=== PATIENT | female | born 1995 | race Caucasian/White ===

== ENCOUNTER 2016-12-29 11:44 | Emergency (ER) | payer BC, OTHER ==
[2016-12-29 11:50] VITALS: BMI 32.0
[2016-12-29] MEDS ORDERED: KETOROLAC TROMETHAMINE 30 MG/1 ML VIAL IVPUSH ONE (13:08)
[2016-12-29] MEDS ORDERED: FAMOTIDINE 20 MG/50 ML IVPB 50 ML IVPB ONE ×2 (13:08→13:14)
[2016-12-29] MEDS ORDERED: SODIUM CHLORIDE 1,000 ML IV STA (13:08)
[2016-12-29] MEDS ORDERED: ONDANSETRON 4 MG/2 ML VIAL IVPUSH ONE (13:08)
[2016-12-29] MEDS ORDERED: ONDANSETRON 4 MG/2 ML VIAL ONE (13:14)
[2016-12-29] MEDS ORDERED: KETOROLAC TROMETHAMINE 30 MG/1 ML VIAL ONE (13:14)
[2016-12-29 13:15] LABS: URINE APPEARANCE SLCLOUDY; URINE BILIRUBIN NEGATIVE (NEGATIVE); URINE BLOOD NEGATIVE (NEGATIVE); URINE COLOR YELLOW; URINE GLUCOSE (UA) NEGATIVE (NEGATIVE); URINE KETONE NEGATIVE (NEGATIVE); URINE NITRITE NEGATIVE (NEGATIVE); URINE PROTEIN NEGATIVE (NEGATIVE); URINE UROBILINOGEN NEGATIVE mg/dL (0.2-1.0)
[2016-12-29 13:29] LABS: BASOPHIL 0.9 % (0-2.0); EOSINOPHIL 2.2 % (0-4.5); MCH 28.7 pg (25.7-33.7); MCHC 33.4 g/dl (32.0-36.0); MEAN CELL VOLUME 85.8 fl (80-96); MEAN PLT VOLUME 7.9 fl (7.5-11.1); NEUTROPHILS 71.8 % (42.8-82.8); PLATELET COUNT 410 K/MM3 (134-434); RDW 12.6 % (11.6-15.6); WHITE BLOOD COUNT 11.2 K/mm3 (4.0-10.0)
[2016-12-29 13:56] LABS: ALBUMIN 4.1 g/dl (3.4-5.0); ANION GAP 9 (8-16); BILIRUBIN,TOTAL 0.6 mg/dL (0.2-1.0); CALCIUM 9.3 mg/dL (8.5-10.1); CO2 27 mmol/L (21-32); CREATININE 0.7 mg/dL (0.55-1.02); GLUCOSE,RANDOM 90 mg/dL (74-106); SGOT/AST 59 U/L (15-37); SGPT/ALT 137 U/L (12-78); TOT PROT 7.8 g/dl (6.4-8.2)
[2016-12-29 13:57] LABS: ALK PHOS 99 U/L (45-117)
--- NOTE | 2016-12-29 14:26 | PDOC ---
History of Present Illness - General Chief Complaint: Pain, Acute Stated Complaint: ABD PAIN, NAUSEA Time Seen by Provider: 12/29/16 12:06 History Source: Patient Exam Limitations: No Limitations - History of Present Illness Travel History: No Initial Comments: 12/29/16 14:02 21-year-old female presents to the ED with complaints of lower abdominal pain intimately for the past year associated with nausea every morning with a burning sensation to epigastric area evening into her upper chest and back of throat. Patient also states for the past year has had loose stool approximately 2-3 times a day and states in her teenage years had similar episodes but never had a colonoscopy or GI workup since she failed to follow-up. Patient denies fever, chills, dysuria, vaginal discharge, irregular menses, abdominal distention, chest pain or shortness of breath. Patient denies drug use but states her diet is poor eating fast food and smoking Timing/Duration: reports: intermittent Quality: reports: mild, burning, cramping Abdominal Pain Onset Location: reports: epigastric Pain Radiation: reports: chest Aggravating Factors: improves with: Eating Alleviating Factors: improves with: None Past History - Travel Traveled outside of the country in the last 30 days: No Close contact w/someone who was outside of country & ill: No - Past Medical History Allergies/Adverse Reactions: Allergies Allergy/AdvReac Type Severity Reaction Status Date / Time No Known Allergies Allergy Verified 02/07/16 19:53 Home Medications: Ambulatory Orders NK [No Known Home Medication] 12/29/16 Other medical history: DENIES - Immunization History Immunization Up to Date: Yes - Suicide/Smoking/Psychosocial Hx Smoking History: Never smoked Have you smoked in the past 12 months: No Information on smoking cessation initiated: No Hx Alcohol Use: No Drug/Substance Use Hx: No Substance Use Type: None Patient Lives Alone: No Lives with/in: spouse/SO Abd/GI Specific PMHX - Complaint Specific PMHX Colitis: No Diverticulitis: No Gall Bladder Disease: No GERD: No Irritable Bowel Synd (IBS): No Review of Systems - Review of Systems Able to Perform ROS?: No Is the patient limited Estonian proficient: No Constitutional: No: Symptoms Reported HEENTM: No: Symptoms Reported Respiratory: No: Symptoms reported Cardiac (ROS): No: Symptoms Reported ABD/GI: Yes: Diarrhea, Nausea, Vomiting, Abdominal cramping. No: Blood Streaked Bowels, Constipated : No: Symptoms Reported Musculoskeletal: No: Symptoms Reported Integumentary: No: Symptoms Reported Neurological: No: Symptoms reported Endocrine: No: Symptoms Reported Hematologic/Lymphatic: No: Symptoms Reported *Physical Exam - Vital Signs Last Vital Signs Temp Pulse Resp BP Pulse Ox 98.4 F 100 H 16 132/79 100 12/29/16 11:47 12/29/16 11:47 12/29/16 11:47 12/29/16 11:47 12/29/16 11:47 - Physical Exam General Appearance: Yes: Nourished, Appropriately Dressed. No: Apparent Distress HEENT: negative: Pale Conjunctivae Cardiovascular: positive: Regular Rhythm, Regular Rate. negative: Murmur Gastrointestinal/Abdominal: positive: Normal Bowel Sounds, Soft, Tenderness ( epigastric and left suprapubic). negative: Distended, Guarding, Rebound Musculoskeletal: negative: CVA Tenderness Extremity: positive: Normal Capillary Refill. negative: Pedal Edema Integumentary: positive: Normal Color, Warm, Moist Neurologic: positive: Motor Strength 5/5 ( ambulatory) ED Treatment Course - LABORATORY CBC & Chemistry Diagram: 12/29/16 13:00 12/29/16 13:00 - ADDITIONAL ORDERS Additional order review: Laboratory Results 12/29/16 12/29/16 13:00 13:00 Sodium 139 Potassium 4.3 Chloride 103 Carbon Dioxide 27 Anion Gap 9 BUN 8 Creatinine 0.7 Creat Clearance w eGFR > 60 Random Glucose 90 Calcium 9.3 Total Bilirubin 0.6 AST 59 H ALT 137 H Alkaline Phosphatase 99 Total Protein 7.8 Albumin 4.1 Lipase 141 Urine Color Yellow Urine Appearance Slcloudy Urine pH 6.0 Urine Protein Negative Urine Glucose (UA) Negative Urine Ketones Negative Urine Blood Negative Urine Nitrite Negative Urine Bilirubin Negative Urine Urobilinogen Negative Urine HCG, Qual Negative 12/29/16 13:00 RBC 5.16 MCV 85.8 MCHC 33.4 RDW 12.6 MPV 7.9 Neutrophils % 71.8 Lymphocytes % 21.4 Monocytes % 3.7 L Eosinophils % 2.2 Basophils % 0.9 - RADIOLOGY Radiology Studies Ordered: Category Date Time Status TRANSVAGINAL ULTRASOUND US [US] Stat Ultrasound 12/29/16 13:07 Ordered - Medications Given in the ED: ED Medications Discontinued Medications Generic Name Dose Route Start Last Admin Trade Name Paola PRN Reason Stop Dose Admin Famotidine/Sodium Chloride 50 mls @ 100 mls/hr 12/29/16 13:08 12/29/16 13:25 Pepcid 20 Mg Premixed Ivpb - IVPB 12/29/16 13:37 100 mls/hr ONCE ONE Administration Sodium Chloride 1,000 mls @ 1,000 mls/hr 12/29/16 13:08 12/29/16 13:25 Normal Saline - IV 12/29/16 14:07 1,000 mls/hr ASDIR STA Administration Ketorolac Tromethamine 30 mg 12/29/16 13:08 12/29/16 13:26 Toradol Injection - IVPUSH 12/29/16 13:09 30 mg ONCE ONE Administration Ondansetron HCl 4 mg 12/29/16 13:08 12/29/16 13:25 Zofran Injection IVPUSH 12/29/16 13:09 4 mg ONCE ONE Administration Medical Decision Making - Medical Decision Making 12/29/16 14:05 Patient with complaints of episodic epigastric pain for the past few months along with loose stool for the past year. Patient states recent diagnosis of PCO as but denies irregular menses. Patient has no other complaints at this time. Patient with likely gastritis/GERD based on history of present illness but will rule out infection, electrolyte imbalance, and gallbladder disease. Patient ordered for CBC, comp, lipase, urinalysis urine and transvaginal ultrasound to evaluate ovaries. 12/29/16 14:26 Laboratory Tests 12/29/16 12/29/16 12/29/16 13:00 13:00 13:00 WBC 11.2 H Hgb 14.8 Hct 44.2 Plt Count 410 Neutrophils % 71.8 Sodium 139 Potassium 4.3 Chloride 103 Carbon Dioxide 27 Anion Gap 9 BUN 8 Creatinine 0.7 Creat Clearance w eGFR > 60 Random Glucose 90 Calcium 9.3 Total Bilirubin 0.6 AST 59 H ALT 137 H Alkaline Phosphatase 99 Lipase 141 Urine Ketones Negative Urine Blood Negative Urine Nitrite Negative Ur Leukocyte Esterase Pending Urine HCG, Qual Negative 12/29/16 16:06 Laboratory Tests 12/29/16 12/29/16 12/29/16 13:00 13:00 13:00 WBC 11.2 H Hgb 14.8 Hct 44.2 Plt Count 410 Neutrophils % 71.8 Monocytes % 3.7 L Sodium 139 Potassium 4.3 Chloride 103 Carbon Dioxide 27 Anion Gap 9 BUN 8 Creatinine 0.7 Creat Clearance w eGFR > 60 Random Glucose 90 Calcium 9.3 Total Bilirubin 0.6 ALT 137 H Alkaline Phosphatase 99 Total Protein 7.8 Albumin 4.1 Lipase 141 Urine Ketones Negative Urine Nitrite Negative Urine HCG, Qual Negative 12/29/16 16:09 Ultrasound shows normal pelvic sonogram with no evidence of ovarian torsion or acute pathology. Patient will be discharged home to follow-up with her [employer] and to take Tums or [id number] Zantac. *DC/Admit/Observation/Transfer Diagnosis at time of Disposition: Epigastric abdominal pain, Lower abdominal pain - Discharge Dispostion Disposition: HOME - Referrals Referrals: Quentin Burleson MD [Staff Physician] - - Patient Instructions Printed Discharge Instructions: DI for Epigastric Pain, DI for Gastroesophageal Reflux Disease (GERD) Additional Instructions: Please read over instructions in regards acid reflux and like we discussed these consider decreasing and fried food intake and fatty foods especially at night to decrease her symptoms. As I recommended also he may purchase [id number] Tums or Pepcid/Zantac for symptoms. Please also follow-up with referred gastroenterologists in regards to your intermittent chronic diarrhea and epigastric pain.
[2016-12-29 15:51] VITALS: BP 123/78; PULSE 68; TEMP 98
[2016-12-29 16:51] LABS: URINE LEUK ESTERASE Negative (NEGATIVE)
== END 2016-12-29 16:24 | disposition home or self-care (01) ==
LOC: JER 11:44
PROC: 3E033GC Introduction of Other Therapeutic Substance into Peripheral Vein, Percutaneous Approach (ICD-10-PCS; principal; 2016-12-29)
PROC: 3E0333Z Introduction of Anti-inflammatory into Peripheral Vein, Percutaneous Approach (ICD-10-PCS; 2016-12-29)
PROC: 3E0337Z Introduction of Electrolytic and Water Balance Substance into Peripheral Vein, Percutaneous Approach (ICD-10-PCS; 2016-12-29)
DX: R10.13 Epigastric pain (principal); R10.30 Lower abdominal pain, unspecified
CPT/HCPCS: 36415; 76830-TC; 80053; 81003; 83690; 84703; 85025; 87086; 99283-25

== ENCOUNTER 2017-02-16 18:58 | Emergency (ER) | payer OTHER ==
[2017-02-16 19:27] VITALS: BP 117/71; PULSE 100; TEMP 98.5; BMI 30.9
--- NOTE | 2017-02-16 19:30 | PDOC ---
Rapid Medical Evaluation Chief Complaint: Pain Time Seen by Provider: 02/16/17 19:27 Medical Evaluation: Allergies Allergy/AdvReac Type Severity Reaction Status Date / Time No Known Allergies Allergy Verified 02/15/17 13:37 Vital Signs Temp Pulse Resp BP Pulse Ox 98.5 F 100 H 18 117/71 99 02/16/17 19:26 02/16/17 19:26 02/16/17 19:26 02/16/17 19:26 02/16/17 19:26 Pt presents with complaint of : ruq to right flank pain with fever. Patient also reports frequency of urination On brief exam: Patient is alert ox3. RUQ tenderness + CVAT I have ordered the following: Cbc, cmp, lipase, ua , Ucx , urine Pt will go to the Emergency Dept for further workup 02/16/17 19:27
[2017-02-16 20:31] LABS: BASOPHIL 0.9 % (0-2.0); EOSINOPHIL 3.2 % (0-4.5); MCH 28.7 pg (25.7-33.7); MCHC 33.3 g/dl (32.0-36.0); MEAN CELL VOLUME 86.1 fl (80-96); MEAN PLT VOLUME 8.4 fl (7.5-11.1); NEUTROPHILS 57.8 % (42.8-82.8); PLATELET COUNT 349 K/MM3 (134-434); RDW 12.6 % (11.6-15.6); WHITE BLOOD COUNT 9.5 K/mm3 (4.0-10.0)
[2017-02-16 21:00] LABS: ALBUMIN 3.8 g/dl (3.4-5.0); ANION GAP 6 (8-16); BILIRUBIN,TOTAL 0.3 mg/dL (0.2-1.0); CALCIUM 8.6 mg/dL (8.5-10.1); CO2 29 mmol/L (21-32); CREATININE 0.8 mg/dL (0.55-1.02); GLUCOSE,RANDOM 103 mg/dL (74-106); SGOT/AST 30 U/L (15-37); SGPT/ALT 91 U/L (12-78); TOT PROT 6.9 g/dl (6.4-8.2)
[2017-02-16 21:01] LABS: ALK PHOS 83 U/L (45-117)
--- NOTE | 2017-02-16 21:37 | PDOC ---
History of Present Illness - General History Source: Patient - History of Present Illness Initial Comments: 02/16/17 22:03 The patient is a 21 year old female with no significant PMH who presents to the emergency department with worsening right upper quadrant abdominal pain for the past three months. The patient notes that her RUQ pain wakes her up at night. Within the last month her PCP has told her she has gastritis and gave her antibiotics but was unable to finish her antibiotics course due to increased nausea and gastric reflux. The patient notes increased vomiting every morning secondary to her RUQ pain. The patient reports junk food consumption. The patient denies fever, chills, diarrhea and constipation. Denies dysuria, frequency, urgency and hematuria. Allergies: NKA Past surgical history: Tonsillectomy Social history: No reported alcohol, drug, or cigarette use. PCP: Dr. Amado <Em Mcqueen - Last Filed: 02/16/17 22:02> - General History Source: Patient <Kameron Lindsay - Last Filed: 02/21/17 19:27> - General Chief Complaint: Pain Stated Complaint: PCP SENT Time Seen by Provider: 02/16/17 19:27 Past History <Em Mcqueen - Last Filed: 02/16/17 22:02> - Past Medical History COPD: No GI Disorders: Yes (ACID REFLUX) - Immunization History Immunization Up to Date: Yes - Suicide/Smoking/Psychosocial Hx Smoking History: Never smoked Have you smoked in the past 12 months: No Information on smoking cessation initiated: No Hx Alcohol Use: No Drug/Substance Use Hx: No Substance Use Type: None <Kameron Lindsay - Last Filed: 02/21/17 19:27> - Past Medical History Allergies/Adverse Reactions: Allergies Allergy/AdvReac Type Severity Reaction Status Date / Time No Known Allergies Allergy Verified 02/15/17 13:37 Home Medications: Ambulatory Orders NK [No Known Home Medication] 12/29/16 Review of Systems - Review of Systems Able to Perform ROS?: Yes Comments:: 02/16/17 22:03 CONSTITUTIONAL: Absent: fever, no chills, no fatigue EYES: Absent: visual changes ENT: Absent: ear pain, no sore throat CARDIOVASCULAR: Absent: chest pain, no palpitations RESPIRATORY: Absent: cough, no SOB GI: Absent: no constipation, no diarrhea Present: abdominal pain, nausea, vomiting GENITOURINARY: Absent: dysuria, no frequency, no hematuria MUSKULOSKELETAL: Absent: back pain, no arthralgia, no myalgia SKIN: Absent: rash NEURO: Absent: headache <Em Mcqueen - Last Filed: 02/16/17 22:02> *Physical Exam - Vital Signs Last Vital Signs Temp Pulse Resp BP Pulse Ox 98.5 F 100 H 18 117/71 99 02/16/17 19:26 02/16/17 19:26 02/16/17 19:26 02/16/17 19:26 02/16/17 19:26 - Physical Exam Comments: 02/16/17 22:04 GENERAL: (+) Slightly obese. Well-appearing, well-nourished. No apparent distress. HEENT: Normocephalic, atraumatic. PERRL, EOM intact. CARDIOVASCULAR: Normal S1, S2. Regular rate and rhythm. PULMONARY: Clear to auscultation bilaterally. ABDOMEN: (+) RUQ and epigastric tenderness. No guarding or rebound. Soft and non- distended. EXTREMITIES: Normal ROM in all four extremities. No gross deformities. SKIN: Warm, dry. No rash NEUROLOGICAL: No focal neurological deficits. <Em Mcqueen - Last Filed: 02/16/17 22:02> - Vital Signs Last Vital Signs Temp Pulse Resp BP Pulse Ox 98.5 F 100 H 18 117/71 99 02/16/17 19:26 02/16/17 19:26 02/16/17 19:26 02/16/17 19:26 02/16/17 19:26 <Kameron Lindsay - Last Filed: 02/21/17 19:27> ED Treatment Course - LABORATORY CBC & Chemistry Diagram: 02/16/17 20:12 02/16/17 20:12 - ADDITIONAL ORDERS Additional order review: Laboratory Results 02/16/17 02/16/17 21:26 20:12 Sodium 141 Potassium 3.9 Chloride 106 Carbon Dioxide 29 Anion Gap 6 L BUN 11 D Creatinine 0.8 Creat Clearance w eGFR > 60 Random Glucose 103 Calcium 8.6 Total Bilirubin 0.3 D AST 30 D ALT 91 H D Alkaline Phosphatase 83 Total Protein 6.9 Albumin 3.8 Lipase 192 Urine HCG, Qual Negative 02/16/17 20:12 RBC 4.61 MCV 86.1 MCHC 33.3 RDW 12.6 MPV 8.4 Neutrophils % 57.8 Lymphocytes % 33.5 D Monocytes % 4.6 Eosinophils % 3.2 Basophils % 0.9 <Em Mcqueen - Last Filed: 02/16/17 22:02> - LABORATORY CBC & Chemistry Diagram: 02/16/17 20:12 02/16/17 20:12 - ADDITIONAL ORDERS Additional order review: Laboratory Results 02/16/17 20:12 Sodium 141 Potassium 3.9 Chloride 106 Carbon Dioxide 29 Anion Gap 6 L BUN 11 D Creatinine 0.8 Creat Clearance w eGFR > 60 Random Glucose 103 Calcium 8.6 Total Bilirubin 0.3 D AST 30 D ALT 91 H D Alkaline Phosphatase 83 Total Protein 6.9 Albumin 3.8 Lipase 192 02/16/17 20:12 RBC 4.61 MCV 86.1 MCHC 33.3 RDW 12.6 MPV 8.4 Neutrophils % 57.8 Lymphocytes % 33.5 D Monocytes % 4.6 Eosinophils % 3.2 Basophils % 0.9 <Kameron Lindsay - Last Filed: 02/21/17 19:27> Medical Decision Making - Medical Decision Making 02/16/17 22:08 Dr. Lindsay: The scribe's documentation has been prepared under my direction and personally reviewed by me in its entirery. I confirm that the note above accurately reflects all work, treatment, procedures, and medical decision making performed by me. <Kameron Lindsay - Last Filed: 02/21/17 19:27> *DC/Admit/Observation/Transfer - Attestations Scribe Attestion: 02/16/17 22:06 Documentation prepared by Em Mcqueen, acting as medical microbiologist for Kameron Lindsay DO. <Em Mcqueen - Last Filed: 02/16/17 22:02> - Discharge Dispostion Admit: No <Kameron Lindsay - Last Filed: 02/21/17 19:27> Diagnosis at time of Disposition: AMA - Signed out against medical advice, Epigastric abdominal pain - Discharge Dispostion Disposition: AGAINST MEDICAL ADVICE Condition at time of disposition: Stable - Referrals Referrals: Peprah,Brock, MD [Primary Care Provider] - - Patient Instructions - Post Discharge Activity
[2017-02-16] MEDS ORDERED: KETOROLAC TROMETHAMINE 60 MG/2 ML VIAL IM ONE (22:08)
[2017-02-16] MEDS ORDERED: KETOROLAC TROMETHAMINE 60 MG/2 ML VIAL ONE (22:09)
[2017-02-16 22:12] LABS: URINE APPEARANCE SLCLOUDY; URINE BILIRUBIN NEGATIVE (NEGATIVE); URINE BLOOD NEGATIVE (NEGATIVE); URINE COLOR DKYELLOW; URINE GLUCOSE (UA) NEGATIVE (NEGATIVE); URINE KETONE NEGATIVE (NEGATIVE); URINE NITRITE NEGATIVE (NEGATIVE)
[2017-02-16 22:21] LABS: URINE PROTEIN 1+ (NEGATIVE)
[2017-02-16 22:38] LABS: URINE BACTERIA RARE /hpf (NONE SEEN); URINE MUCUS RARE; URINE RBC 8 /hpf (0-3); URINE WBC 6 /hpf (3-5)
[2017-02-17] MEDS ORDERED: morphine CARPU-JECT 2 MG/1 ML DISP.SYRIN IVPUSH ONE (00:41)
[2017-02-17] MEDS ORDERED: ONDANSETRON 4 MG/2 ML VIAL IVPUSH STA (00:41)
[2017-02-17] MEDS ORDERED: SODIUM CHLORIDE 1,000 ML IV STA (00:42)
[2017-02-17 11:57] LABS: URINE LEUK ESTERASE Negative (NEGATIVE)
== END 2017-02-17 01:21 | disposition left against medical advice (07) ==
LOC: JER 18:58
PROC: 3E0333Z Introduction of Anti-inflammatory into Peripheral Vein, Percutaneous Approach (ICD-10-PCS; principal; 2017-02-16)
DX: R10.30 Lower abdominal pain, unspecified (principal)
CPT/HCPCS: 36415; 76705-TC; 80053; 81003; 81015; 83690; 84703; 85025; 87086; 99282-25

== ENCOUNTER 2018-02-28 19:49 | Emergency (ER) | payer SELFPAY ==
[2018-02-28 20:04] VITALS: TEMP 98.5; BMI 23.9
--- NOTE | 2018-02-28 20:07 | PDOC ---
Rapid Medical Evaluation Chief Complaint: Chest Pain Time Seen by Provider: 02/28/18 20:06 Medical Evaluation: Allergies Allergy/AdvReac Type Severity Reaction Status Date / Time No Known Allergies Allergy Verified 02/28/18 20:02 Vital Signs Temp Pulse Resp BP Pulse Ox 98.5 F 135 H 18 149/87 100 02/28/18 20:02 02/28/18 20:02 02/28/18 20:02 02/28/18 20:02 02/28/18 20:02 02/28/18 20:06 02/28/18 19:49 I have performed a brief in-person evaluation of this patient. The patient presents with a chief complaint of: Chest tightness w/ ? cough and chills x 3 days. No sig hx Pertinent physical exam findings: HR 135, chest/lungs clear otherwise I have ordered the following:ekg/cxr/urpeg The patient will proceed to the ED for further evaluation Discharge Disposition Discharge Disposition - Diagnosis Chest tightness - Referrals - Patient Instructions - Post Discharge Activity
[2018-02-28] MEDS ORDERED: SODIUM CHLORIDE 1,000 ML IV STA (20:48)
--- NOTE | 2018-02-28 20:55 | PDOC ---
History of Present Illness - General Chief Complaint: Chest Pain Stated Complaint: CHEST PAIN Time Seen by Provider: 02/28/18 20:06 History Source: Patient Exam Limitations: No Limitations - History of Present Illness Initial Comments: 02/28/18 20:49 Pt is a previously healthy 22yo F presenting today with complaints of sore throat, L ear pain, cough and chest pains. Pt said she started to have sore throat 2-3 days ago with L ear pain. She also states she has been coughing up yellow phlegm as well. She states that she has occasional chest pains that are on and off can last up to 5 minutes in the middle of her chest which feels like a stabbing, worse with inspiration. She is also complaining of mid back pain as well. She admits to chills at home, denies fevers. 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 She denies headache, changes in vision, neck pain, joint pain, abdominal pain, n/v/d, leg swelling, recent travel, recent surgery, hemoptysis. Denies drug use. PMD: none PMH: none PSH: tonsillectomy Meds: none Allergies: nkda Social: denies Past History - Past Medical History Allergies/Adverse Reactions: Allergies Allergy/AdvReac Type Severity Reaction Status Date / Time No Known Allergies Allergy Verified 02/28/18 20:02 Home Medications: Ambulatory Orders NK [No Known Home Medication] 02/28/18 COPD: No GI Disorders: Yes (ACID REFLUX) - Immunization History Immunization Up to Date: Yes - Suicide/Smoking/Psychosocial Hx Smoking History: Unknown if ever smoked Have you smoked in the past 12 months: No Hx Alcohol Use: No Drug/Substance Use Hx: No Substance Use Type: None *Physical Exam - Vital Signs Last Vital Signs Temp Pulse Resp BP Pulse Ox 98.5 F 135 H 18 149/87 100 02/28/18 20:02 02/28/18 20:02 02/28/18 20:02 02/28/18 20:02 02/28/18 20:02 Moderate Sedation - Procedure Monitoring Vital Signs: Procedure Monitoring Vital Signs Temperature 98.5 F 02/28/18 20:02 Pulse Rate 135 H 02/28/18 20:02 Respiratory Rate 18 02/28/18 20:02 Blood Pressure 149/87 02/28/18 20:02 O2 Sat by Pulse Oximetry (%) 100 02/28/18 20:02 ED Treatment Course - LABORATORY CBC & Chemistry Diagram: 02/28/18 21:10 02/28/18 21:10 Medical Decision Making - Medical Decision Making 02/28/18 20:54 Pt is a previously healthy 22yo F presenting today with complaints of sore throat, L ear pain, cough and chest pains. Pt said she started to have sore throat 2-3 days ago with L ear pain. She also states she has been coughing up yellow phlegm as well. She states that she has occasional chest pains that are on and off can last up to 5 minutes in the middle of her chest which feels like a stabbing, worse with inspiration. She is also complaining of mid back pain as well. She admits to chills at home, denies fevers. 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 She denies headache, changes in vision, neck pain, joint pain, abdominal pain, n/v/d, leg swelling, recent travel, recent surgery, hemoptysis. Denies drug use. Vitals: tachycardia PE: wnl Ddx: arrythmia, PE, PNA, dissection, aneurysm, *DC/Admit/Observation/Transfer Diagnosis at time of Disposition: Chest tightness - Discharge Dispostion Disposition: HOME Condition at time of disposition: Good Decision to Admit order: No - Referrals - Patient Instructions Printed Discharge Instructions: DI for Atypical Chest Pain Additional Instructions: You were seen here today for sore throat, chest pain and palpitations. Your tests were normal. You may have a viral infection. You can take ibuprofen or Tylenol for pain as needed. You can use a humidifier or a nasal spry to help out with congestion and throat pain. Make sure you keep yourself well hydrated. I recommend you see a primary care doctor once you have insurance. You can call [phone] to schedule an appointment with a primary care doctor. The office is located on [address] in [place]. Come back to the emergency room if pain gets worse, you have fevers, your chest pain is worse, you have difficulty breathing or if any new concerning symptom develops. Thank you - Post Discharge Activity Forms/Work/School Notes: Back to Work
--- NOTE | 2018-02-28 21:47 | PDOC ---
Attending Attestation - Resident Resident Name: Kavitha Gordillo - ED Attending Attestation I have performed the following: I have examined & evaluated the patient, The case was reviewed & discussed with the resident, I agree w/resident's findings & plan, Exceptions are as noted - HPI HPI: 02/28/18 21:45 The patient is a 22 year old Male with no significant past medical history who presents to the ED today with complaints of sore throat, left ear pain, cough, chills, and intermittent chest pains which have developed in that order over the past 2 days. She reports her cough as productive of yellow sputum. She reports her chest pains can last up to 5 minutes, localized to the middle of her chest as a stabbing sensation which is worse with inspiration. The patient denies shortness of breath, headache and dizziness. The patient denies fever, nausea, vomit, diarrhea and constipation. The patient denies dysuria, frequency, urgency and hematuria. - Physicial Exam PE: 02/28/18 21:46 "GENERAL: Awake, alert, and fully oriented, in no acute distress. HEAD: No signs of trauma EYES: PERRLA, EOMI, sclera anicteric, conjunctiva clear ENT: Auricles normal inspection, hearing grossly normal, nares patent, oropharynx clear without exudates. Moist mucosa NECK: Nontender, no stepoffs, Normal ROM, supple, no lymphadenopathy, JVD, or masses LUNGS: Breath sounds equal, clear to auscultation bilaterally. No wheezes, and no crackles HEART: Regular rate and rhythm, normal S1 and S2, no murmurs, rubs or gallops ABDOMEN: Soft, nontender, normoactive bowel sounds. No guarding, no rebound. No masses EXTREMITIES: Normal range of motion, no edema. No clubbing or cyanosis. No cords, erythema, or tenderness NEUROLOGICAL: Cranial nerves II through XII intact. 5/5 strength and sensation in all extremities, Normal speech, normal gait, normal cerebellar function SKIN: Warm, Dry, normal turgor, no rashes or lesions noted. - Medical Decision Making 02/28/18 21:46 22 F with URI-like symptoms and chest pain. Likely viral illness. However, pt with significant tachycardia in ED. Will need to r/o PE. Will also check TSH. Pt denies drug use but smells of marijuana in ED. Possible sympathomimetic abuse. - Labs, trop, Ddimer - CXR - UA, Utox - IVF 03/01/18 00:16 Labs wnl, trop and dimer negative CXR clear on my read UA negative Pt reassessed - pain is improved Pt is well appearing, with normal vitals. Clinically stable for DC at this time. I discussed the physical exam findings, ancillary test results and final diagnoses with the patient. I answered all of the patient's questions. The patient was satisfied with the care received and felt comfortable with the discharge plan and treatment plan. The patient agrees to follow up with the primary care physician within 24-72 hours.
[2018-02-28 22:04] LABS: URINE APPEARANCE CLEAR; URINE BILIRUBIN NEGATIVE (<2.0 mg/dL); URINE COLOR YELLOW; URINE GLUCOSE (UA) NEGATIVE (NEGATIVE); URINE KETONE NEGATIVE (NEGATIVE); URINE LEUK ESTERASE NEGATIVE (NEGATIVE); URINE NITRITE NEGATIVE (NEGATIVE); URINE PROTEIN NEGATIVE (NEGATIVE); URINE UROBILINOGEN NEGATIVE mg/dL (0.2-1.0)
[2018-02-28 22:05] LABS: BASO % 0.4 % (0-2.0); HEMATOCRIT 42.6 % (32.4-45.2); HEMOGLOBIN 14.8 GM/dL (10.7-15.3); LYMPH % 21.4 % (8-40); MCH 30.7 pg (25.7-33.7); MCHC 34.8 g/dl (32.0-36.0); MEAN CELL VOLUME 88.1 fl (80-96); MEAN PLT VOLUME 8.9 fl (7.5-11.1); MONO % 5.9 % (3.8-10.2); NEUT % 71.3 % (42.8-82.8); PLATELET COUNT 383 K/MM3 (134-434); RBC 4.84 M/mm3 (3.60-5.2); RDW 12.6 % (11.6-15.6); WHITE BLOOD COUNT 11.6 K/mm3 (4.0-10.0)
[2018-02-28 22:38] LABS: ALBUMIN 4.5 g/dl (3.4-5.0); ALK PHOS 94 U/L (45-117); ANION GAP 9 MMOL/L (8-16); BILIRUBIN,TOTAL 0.5 mg/dL (0.2-1); BLOOD UREA NITROGEN 7 mg/dL (7-18); CALCIUM 9.6 mg/dL (8.5-10.1); CHLORIDE 104 mmol/L (98-107); CO2 26 mmol/L (21-32); CREATININE 0.7 mg/dL (0.55-1.3); GLUCOSE,RANDOM 82 mg/dL (74-106); MAGNESIUM 2.3 mg/dL (1.8-2.4); POTASSIUM 3.6 mmol/L (3.5-5.1); SGOT/AST 19 U/L (15-37); SGPT/ALT 42 U/L (13-61); SODIUM 140 mmol/L (136-145); TOT PROT 8.1 g/dl (6.4-8.2)
[2018-02-28 23:53] VITALS: BP 117/73; PULSE 92
--- NOTE | 2018-03-02 10:22 | EKG ---
Test Reason : Blood Pressure : / mmHG Vent. Rate : 127 BPM Atrial Rate : 127 BPM P-R Int : 000 ms QRS Dur : 074 ms QT Int : 404 ms P-R-T Axes : 000 069 055 degrees QTc Int : 587 ms SINUS TACHYCARDIA POSSIBLE ANTERIOR INFARCT , AGE UNDETERMINED ABNORMAL ECG WHEN COMPARED WITH ECG OF 18-MAY-2017 19:00, NONSPECIFIC T WAVE ABNORMALITY, WORSE IN LATERAL LEADS Confirmed by ANGELIKA ERIC, MESSI ([id number]) on 03/02/2018 10:22:23 AM Referred By: Confirmed By:MESSI CARNEY MD
== END 2018-03-01 00:43 | disposition home or self-care (01) ==
LOC: JER 19:49
PROC: 3E0337Z Introduction of Electrolytic and Water Balance Substance into Peripheral Vein, Percutaneous Approach (ICD-10-PCS; principal; 2018-02-28)
DX: R07.89 Other chest pain (principal)
CPT/HCPCS: 36415; 71046-TC-FY; 80053; 81003; 83735; 84443; 84484; 84703; 85025; 85379; 93005; 93010; 96360; 99283-25; J7030